=== PATIENT | male | born 1960 | race Caucasian/White ===

== ENCOUNTER 2020-01-31 10:48 | Emergency (ER) | payer MEDICAID ==
[~2020-01-31] VITALS: Ht 177.8 cm; Wt 79.4 kg
--- NOTE | 2020-01-31 11:00 | NUR ---
PATIENT CAME IN C/O ABDOMINAL PAIN WITH NAUSEA AND VOMITING. PATIENT A/OX4, BREATHING EVEN AND UNLABORED, NO SOB NOTED. ATTACHED TO THE CREATIVE ART DIRECTOR.
[2020-01-31] MEDS ORDERED: PANTOPRAZOLE 40 MG VIAL ONE (11:10)
[2020-01-31] MEDS ORDERED: ONDANSETRON HCL/PF 4 MG/2 ML VIAL ONE (11:10)
--- NOTE | 2020-01-31 11:20 | NUR ---
IV LINE ESTABLISHED, BLOOD DRAWN FROM LINE AND SENT TO LAB.
[2020-01-31 11:25] LABS: BASOPHILS # (AUTO) 0.1 /CMM (0.0-0.2); BASOPHILS % (AUTO) 0.5 % (0.0-2.0); EOSINOPHILS % (AUTO) 0.4 % (0.0-6.0); HEMATOCRIT 46 % (39-51); HEMOGLOBIN 15.6 g/dL (13.5-17.5); LYMPHOCYTES # (AUTO) 0.9 /CMM (0.8-4.8); LYMPHOCYTES % (AUTO) 7.8 % (20.0-44.0); MEAN CORPUSCULAR HGB CONC 34 g/dl (31.0-36.0); MEAN CORPUSCULAR VOLUME 89 fL (80-96); MONOCYTES # (AUTO) 0.5 /CMM (0.1-1.30); MONOCYTES % (AUTO) 4.2 % (2.0-12.0); NEUTROPHILS # (AUTO) 10.1 /CMM (1.8-8.9); NEUTROPHILS % (AUTO) 87.1 % (43.0-81.0); PLATELET COUNT (AUTO) 154 /CMM (150-450); RED BLOOD CELL COUNT(AUTO) 5.19 MIL/uL (4.5-6.0); WHITE BLOOD COUNT (AUTO) 11.6 K/uL (4.3-11.0)
[2020-01-31] MEDS ORDERED: ONDANSETRON HCL/PF 4 MG/2 ML VIAL IVP ONE (11:30)
[2020-01-31] MEDS ORDERED: IV NS 0.9% 1,000 ML BAG IV ONE (11:30)
[2020-01-31] MEDS ORDERED: PANTOPRAZOLE 40 MG VIAL IV ONE (11:30)
[2020-01-31 11:38] LABS: CALCIUM, SERUM 9.6 mg/dL (8.5-10.1); CREATININE 0.9 mg/dL (0.6-1.3); POTASSIUM 4.3 mmol/L (3.5-5.1)
--- NOTE | 2020-01-31 11:41 | NUR ---
PATIENT TAKEN TO RADIOLOGY FOR CT.
[2020-01-31 11:44] LABS: ALBUMIN 4.4 g/dL (3.4-5.0); BILIRUBIN,DIRECT 0.3 mg/dL (0.0-0.2); BILIRUBIN,TOTAL 1.9 mg/dL (0.2-1.0); TOTAL PROTEIN, SERUM 9.2 g/dL (6.4-8.2)
--- NOTE | 2020-01-31 12:00 | NUR ---
US TECH AT BEDSIDE
[2020-01-31 13:20] VITALS: BP 164/100
== END 2020-01-31 13:21 | disposition home or self-care (01) ==
LOC: ER 10:51
DX: K20.90 Esophagitis, unspecified without bleeding (principal)
CPT/HCPCS: 36415; 71045; 74176; 76700; 80048; 80076; 83690; 85025; 96361; 96374; 96375; 99285; C9113; J2405; J7030